=== PATIENT | male | born 1980 | race Caucasian/White ===

== ENCOUNTER 2019-06-19 09:39 | Emergency (ER) | payer MEDICAID ==
[~2019-06-19] VITALS: Ht 177.8 cm; Wt 91.0 kg
[2019-06-19] MEDS ORDERED: OMEP20CA5 PO (09:48)
[2019-06-19] MEDS ORDERED: TETANUS, DIPHTHERIA, PERTUSSIS VAC/PF 0.5ML (>7YR OLD) IM ONE (10:30)
[2019-06-19 10:57] LABS: CLARITY URINE CLEAR (CLEAR); COLOR URINE YELLOW (YELLOW); KETONES URINE NEGATIVE (NEGATIVE); LEUKOCYTE ESTERASE URINE NEGATIVE (NEGATIVE); NITRITE URINE NEGATIVE (NEGATIVE); OCCULT BLOOD URINE NEGATIVE (NEGATIVE); PH URINE >=9.0 (4.5-8.0); PROTEIN URINE NEGATIVE (NEGATIVE); SPECIFIC GRAVITY URINE 1.012 (1.005-1.030)
[2019-06-19 11:13] LABS: *AMPHETAMINES SCREEN URINE NEGATIVE (NEGATIVE); *BARBITURATES SCREEN URINE NEGATIVE (NEGATIVE); *BENZODIAZEPINES SCREEN URINE NEGATIVE (NEGATIVE); *COCAINE SCREEN URINE NEGATIVE (NEGATIVE)
[2019-06-19 11:14] LABS: CANNABINOID URINE SCREEN NEGATIVE (NEGATIVE); OPIATES URINE SCREEN NEGATIVE (NEGATIVE); PHENCYCLIDINE URINE SCREEN NEGATIVE (NEGATIVE)
[2019-06-19 11:34] LABS: METHADONE URINE SCREEN NEGATIVE (NEGATIVE)
[2019-06-19 11:37] LABS: BASOPHILS % 0.7 % (0.0-2.0); EOSINOPHILS % 4.6 % (0.0-5.0); HEMATOCRIT. 39.8 % (42.0-52.0); HEMOGLOBIN. 13.8 g/dL (14.0-18.0); LYMPHOCYTES % 24.8 % (20.0-50.0); MEAN CORPUSCULAR HEMOGLOBIN 30.9 pg (28.0-32.0); MEAN CORPUSCULAR VOLUME 89.2 fL (80.0-94.0); MEAN PLATELET VOLUME 8.5 fl (7.4-10.4); MONOCYTES % 8.4 % (2.0-8.0); NEUTROPHILS % 61.5 % (40.0-76.0); PLATELET 237 x1000/uL (130-400); RED BLOOD CELL COUNT 4.46 mill/uL (4.7-6.1); RED CELL DISTRIBUTION WIDTH 13.3 % (11.6-14.6)
[2019-06-19 11:40] LABS: CHLORIDE 104 mEq/L (98-107)
[2019-06-19 11:44] LABS: ETHANOL BLOOD < 10 mg/dL
[2019-06-20] MEDS ORDERED: NICOTINE 7MG PATCH TD ONE (08:45)
[2019-06-20 11:33] VITALS: BP 122/78
== END 2019-06-20 11:35 | disposition home or self-care (01) ==
LOC: ER 09:39
DX: R45.851 Suicidal ideations (principal); F32.9 Major depressive disorder, single episode, unspecified; F17.210 Nicotine dependence, cigarettes, uncomplicated; Z86.19 Personal history of other infectious and parasitic diseases
CPT/HCPCS: 36415; 80305; 80320; 90471; 90715; 99284; G0480

== ENCOUNTER 2025-02-07 13:00 | Emergency (ER) | payer MEDICAID ==
[~2025-02-07] VITALS: Ht 182.9 cm; Wt 91.0 kg
[~2025-02-07 13:00] MED LIST: OMEP20CA14 PO
[2025-02-07 13:05] VITALS: BP 142/90; PULSE 103; RESP 18; TEMP 36.7; O2SAT 99
[2025-02-07] MEDS: KETOROLAC 30MG/ML VIAL IM STA (15:09)
[2025-02-07 17:02] LABS: HEMATOCRIT. 45.3 % (42.0-52.0); HEMOGLOBIN. 14.9 g/dL (14.0-18.0); MEAN CORPUSCULAR HEMOGLOBIN 28.8 pg (28.0-32.0); MEAN CORPUSCULAR HGB CONC 32.9 g/dL (31.0-37.0); MEAN CORPUSCULAR VOLUME 87.7 fL (80.0-94.0); MEAN PLATELET VOLUME 8.5 fl (7.4-10.4); PLATELET 257 x1000/uL (130-400); RED BLOOD CELL COUNT 5.16 mill/uL (4.7-6.1); RED CELL DISTRIBUTION WIDTH 13.3 % (11.6-14.6); WHITE BLOOD COUNT 9.3 x1000/uL (4.5-11.0)
[2025-02-07 17:06] LABS: DIFFERENTIAL COMMENT 1
[2025-02-07 17:11] LABS: CHLORIDE 101 mEq/L (98-107); POTASSIUM 3.8 mEq/L (3.5-5.1); SODIUM 136 mEq/L (136-145)
[2025-02-07 17:12] LABS: CARBON DIOXIDE 25 mEq/L (21-32)
[2025-02-07 17:13] LABS: CALCIUM 9.3 mg/dL (8.7-10.4)
[2025-02-07 17:17] LABS: CREATININE 0.7 mg/dL (0.6-1.3)
[2025-02-07 17:18] LABS: GLUCOSE 124 mg/dL (70-105); UREA NITROGEN BLOOD 12 mg/dL (9-23)
[2025-02-07 17:19] LABS: ALANINE AMINOTRANSFERASE 15 IU/L (10-49); ALBUMIN 4.3 g/dL (3.2-4.8); ASPARTATE AMINOTRANSFERASE 21 IU/L (<34)
[2025-02-07 17:20] LABS: BILIRUBIN TOTAL 0.7 mg/dL (0.1-1.0)
[2025-02-07] MEDS ORDERED: MUPI15CR11 TP (18:18)
[2025-02-07] MEDS ORDERED: SULF1TAB48 MT (18:18)
[2025-02-07] MEDS ORDERED: NAPR-681 MT (18:18)
[2025-02-07] MEDS ORDERED: CEPH500C2 MT (18:18)
[2025-02-07] MEDS ORDERED: ONDA4TAB50 MT (18:30)
[2025-02-07 19:33] LABS: PLATELET ESTIMATE NORMAL
== END 2025-02-07 18:37 | disposition home or self-care (01) ==
LOC: ER 13:28
DX: L03.312 Cellulitis of back [any part except buttock and flank] (principal); L03.221 Cellulitis of neck; L03.311 Cellulitis of abdominal wall; F15.90 Other stimulant use, unspecified, uncomplicated
CPT/HCPCS: 99283; 80053; 85025; 36415; 96372; J1885